=== PATIENT | male | born 1990 | race Caucasian/White ===

== ENCOUNTER 2021-06-07 01:31 | Emergency (ER) | payer SELFPAY ==
[~2021-06-07 01:31] MED LIST: BENTYL10 MG PO; NORCO 5-325 TA1 EACH PO; ONDANSETRON ODT4 MG SL
[2021-06-07 02:55] LABS: BASOPHIL 0.8 % (0-2); EOSINOPHIL 4.5 % (0-5); HCT 45.4 % (42.0-52.0); HGB 15.3 g/dl (13.2-18.0); LYMPHOCYTE 32.7 % (15-48); MCH 30.9 pg (25.0-31.0); MCHC 33.7 g/dL (32.0-36.0); MCV 91.7 fL (78.0-100.0); MONOCYTE 6.8 % (0-12); MPV 9.4 fL (6.0-9.5); NEUTROPHIL 54.8 % (41-80); NRBC 0; PLT 359 K/uL (150-400); RBC 4.95 M/uL (4.70-6.00); RDW 13.2 % (11.5-14.0)
[2021-06-07 03:23] LABS: ALBUMIN 4.2 g/dL (3.4-5.0); BILIRUBIN - TOTAL 0.8 mg/dL (0.2-1.0); CREATININE 1.13 mg/dL (0.67-1.17); POTASSIUM 3.4 mmol/L (3.5-5.1); TOTAL PROTEIN 8.2 g/dL (6.4-8.2)
== END 2021-06-07 04:48 | disposition home or self-care (01) ==
LOC: FER 01:31
PROVIDERS: Emergency Medicine
DX: M79.89 Other specified soft tissue disorders (principal); I10 Essential (primary) hypertension; J45.909 Unspecified asthma, uncomplicated; F17.200 Nicotine dependence, unspecified, uncomplicated
CPT/HCPCS: 36415; 71045; 80053; 83880; 84484; 85025; 93005; 93970